=== PATIENT | male | born 1985 | race American Indian/Alaskan Native ===

== ENCOUNTER 2019-01-14 01:04 | Emergency (ER) | payer SELFPAY ==
[2019-01-14] MEDS ORDERED: KEPPRA 1,000 MG/NS 0.75% 100ML 1,000 MG/100 ML BAG IV ONE (01:33)
[2019-01-14 02:38] LABS: Hematocrit 33.7 % (35.5-45.6); Hemoglobin 11.3 gm/dl (11.8-15.2); Mean Corpuscular HGB Conc 34 % (32-34); Mean Corpuscular Volume 91 fl (84-94); Platelet Count 166 K/mm3 (140-440); Red Blood Count 3.69 M/mm3 (3.65-5.03); Red Cell Distribution Width 14.5 % (13.2-15.2)
--- NOTE | 2019-01-14 02:41 | Cat Scan Report ---
CT HEAD WITHOUT CONTRAST INDICATION / CLINICAL INFORMATION: facial injury after SZ. TECHNIQUE: All CT scans at this location are performed using CT dose reduction for ALARA by means of automated e xposure control. COMPARISON: None available. FINDINGS: HEMORRHAGE: None. EXTRA-AXIAL SPACES: Normal in size and morphology for the patient's age. VENTRICULAR SYSTEM: Normal in size and morphology for the patient's age. CEREBRAL PARENCHYMA: No significant abnormality. No acute territorial infarct. MIDLINE SHIFT OR HERNIATION: None. CEREBELLUM / BRAINSTEM: No significant abnormality. ORBITS: Normal as visualized. SOFT TISSUES of HEAD: No significant abnormality. CALVARIUM: No significant abnormality. PARANASAL SINUSES / MASTOID AIR CELLS: Moderate mucosal thickening in bilateral ethmoid sinuses. Visu alized paranasal sinuses and mastoid air cells are otherwise well-aerated ADDITIONAL FINDINGS: None. IMPRESSION: 1. No acute intracranial abnormality. 2. Bilateral ethmoid sinus disease Signer Name: Hamlet Mccarty MD Signed: 01/14/2019 2:37 AM Workstation Name: [id number]
--- NOTE | 2019-01-14 02:44 | Cat Scan Report ---
CT MAXILLOFACIAL WITHOUT CONTRAST INDICATION / CLINICAL INFORMATION: facial injury after SZ. TECHNIQUE: All CT scans at this location are performed using CT dose reduction for ALARA by means of automated e xposure control. COMPARISON: Head CT same day FINDINGS: FACIAL BONES: No fracture or other significant abnormality. PARANASAL SINUSES: No significant abnormality. Moderate bilateral ethmoid sinus thickening ORBITS: No significant abnormality. VISUALIZED INTRACRANIAL STRUCTURES: No significant abnormality. ADDITIONAL FINDINGS: None. IMPRESSION: 1. No facial fracture 2. Bilateral ethmoid sinus disease Signer Name: Hamlet Mccarty MD Signed: 01/14/2019 2:39 AM Workstation Name: [id number]
[2019-01-14 02:52] LABS: BUN/Creatinine Ratio 8; Blood Urea Nitrogen 9 mg/dL (9-20); Hemolysis Index 9
[2019-01-14 03:16] VITALS: BP 121/72
--- NOTE | 2019-01-14 03:20 | Emergency Department Report ---
ED Seizure HPI - General Chief Complaint: Seizure Stated Complaint: SEIZURE Time Seen by Provider: 01/14/19 01:11 Source: patient, EMS Mode of arrival: Stretcher Limitations: No Limitations - History of Present Illness Initial Comments: Patient is a 33-year-old have recommended who has a seizure disorders been taking Keppra for the last several months who presented status post seizure. Patient was at a [employer] and he had 2 seizures. Patient was checked out by paramedics after first seizure declined to come to the hospital however after the second seizure patient hit his head and after improvement from his postictal state is agreed to be seen. Patient struck the face and has pain at the bridge of the nose as well as his lower lip. Patient denies any fevers chills nausea vomiting or neck stiffness or pain at this time. - Related Data Previous Rx's Medication Instructions Recorded Last Taken Type Chlorhexidine Mouthwash [Peridex] 15 ml MM BID #1 bottle 01/14/19 Unknown Rx Allergies Allergy/AdvReac Type Severity Reaction Status Date / Time No Known Allergies Allergy Unverified 01/14/19 01:14 ED Review of Systems ROS: Stated complaint: SEIZURE Other details as noted in HPI Comment: All other systems reviewed and negative ED Past Medical Hx - Past Medical History Previous Medical History?: Yes Hx Seizures: Yes - Surgical History Past Surgical History?: No - Social History Smoking Status: Current Every Day Smoker Substance Use Type: None - Medications Home Medications: Home Medications Medication Instructions Recorded Confirmed Last Taken Type Chlorhexidine Mouthwash [Peridex] 15 ml MM BID #1 bottle 01/14/19 Unknown Rx ED Physical Exam - General Limitations: No Limitations General appearance: alert, in no apparent distress - Head Head exam: Present: normocephalic. Absent: atraumatic (patient with some swelling and mild erythema to the bridge of the nose. There is no active epistaxis.) - Eye Eye exam: Present: normal appearance - ENT ENT exam: Present: mucous membranes moist, other (A shows a 1 cm laceration on the inner lower lip.) - Neck Neck exam: Present: normal inspection, full ROM. Absent: tenderness, meningismus - Respiratory Respiratory exam: Present: normal lung sounds bilaterally. Absent: respiratory distress, wheezes, rales, rhonchi, stridor - Cardiovascular Cardiovascular Exam: Present: regular rate, normal rhythm, normal heart sounds. Absent: systolic murmur, diastolic murmur, rubs, gallop - GI/Abdominal GI/Abdominal exam: Present: soft, normal bowel sounds. Absent: distended, tenderness, guarding, rebound - Rectal Rectal exam: Present: deferred - Extremities Exam Extremities exam: Present: normal inspection - Back Exam Back exam: Present: normal inspection - Neurological Exam Neurological exam: Present: alert, oriented X3, CN II-XII intact, motor sensory deficit - Psychiatric Psychiatric exam: Present: normal affect, normal mood - Skin Skin exam: Present: warm, dry, intact, normal color. Absent: rash ED Course Vital Signs 01/14/19 01/14/19 01/14/19 01:15 01:26 03:15 Temperature 98.9 F Pulse Rate 93 H 77 Respiratory 15 16 20 Rate Blood Pressure 92/58 Blood Pressure 121/72 [Left] O2 Sat by Pulse 99 100 98 Oximetry ED Medical Decision Making - Lab Data Result diagrams: 01/14/19 02:02 01/14/19 02:02 Lab Results 01/14/19 01/14/19 01/14/19 Range/Units 01:33 02:02 02:02 WBC 6.8 (4.5-11.0) K/mm3 RBC 3.69 (3.65-5.03) M/mm3 Hgb 11.3 L (11.8-15.2) gm/dl Hct 33.7 L (35.5-45.6) % MCV 91 (84-94) fl MCH 31 (28-32) pg MCHC 34 (32-34) % RDW 14.5 (13.2-15.2) % Plt Count 166 (140-440) K/mm3 Sodium 137 (137-145) mmol/L Potassium 3.3 L (3.6-5.0) mmol/L Chloride 94.5 L (98-107) mmol/L Carbon Dioxide 24 (22-30) mmol/L Anion Gap 22 mmol/L BUN 9 (9-20) mg/dL Creatinine 1.1 (0.8-1.5) mg/dL Estimated GFR > 60 ml/min BUN/Creatinine Ratio 8 % Glucose 90 (75-100) mg/dL POC Glucose 150 H (70-105) Calcium 10.0 (8.4-10.2) mg/dL - Radiology Data ET of the head and facial bones show no acute process - Medical Decision Making Patient was loaded with a gram of Keppra. Will also be discharged home with Peridex for his laceration. Patient was recently started on Her. The patient has another seizure within the next month he may need to have his seizure medications adjusted. Patient has a rather large gentleman and his dose may be too low for him. Critical care attestation.: If time is entered above; I have spent that time in minutes in the direct care of this critically ill patient, excluding procedure time. ED Disposition Clinical Impression: Breakthrough seizure Facial contusion Qualifiers: Encounter type: initial encounter Qualified Code(s): S00.83XA - Contusion of other part of head, initial encounter Closed head injury Qualifiers: Encounter type: initial encounter Qualified Code(s): S09.90XA - Unspecified injury of head, initial encounter Lip laceration Qualifiers: Encounter type: initial encounter Qualified Code(s): S01.511A - Laceration without foreign body of lip, initial encounter Disposition: DC-01 TO HOME OR SELFCARE Is pt being admited?: No Does the pt Need Aspirin: No Condition: Stable Instructions: Epilepsy (ED) Prescriptions: Chlorhexidine Mouthwash [Peridex] 15 ml MM BID #1 bottle Referrals: PRIMARY CARE, [Primary Care Provider] - 3-5 Days Time of Disposition: 03:19
== END 2019-01-14 03:28 | disposition home or self-care (01) ==
LOC: ED 01:04
DX: S01.511A Laceration without foreign body of lip, initial encounter (principal); G40.919 Epilepsy, unspecified, intractable, without status epilepticus; F17.200 Nicotine dependence, unspecified, uncomplicated; X58.XXXA Exposure to other specified factors, initial encounter; Y93.89 Activity, other specified; Y92.89 Other specified places as the place of occurrence of the external cause; Y99.8 Other external cause status
CPT/HCPCS: 36415; 70450; 70486; 80048; 82962; 85027; 96365; 99284; J1953